=== PATIENT | female | born 1980 | race Two or more races ===

== ENCOUNTER 2019-05-07 12:41 | Emergency (ER) | payer MEDICAID ==
[~2019-05-07] VITALS: Ht 152.4 cm; Wt 90.7 kg
[2019-05-07 12:50] VITALS: BP 113/67
[2019-05-07] MEDS ORDERED: IBUPROFEN 800 MG TAB PO ONE (14:45)
== END 2019-05-07 15:05 | disposition home or self-care (01) ==
LOC: ER 12:50
DX: H66.91 Otitis media, unspecified, right ear (principal); J03.90 Acute tonsillitis, unspecified
CPT/HCPCS: 71046

== ENCOUNTER 2020-03-28 12:32 | Emergency (ER) | payer MEDICAID ==
[~2020-03-28] VITALS: Ht 152.4 cm; Wt 90.7 kg
[2020-03-28 12:47] VITALS: BP 125/90
== END 2020-03-28 17:21 | disposition home or self-care (01) ==
LOC: ER 12:32
DX: U07.1 COVID-19 (principal)
CPT/HCPCS: 36415; 71045; 87426

== ENCOUNTER 2020-11-06 11:46 | Emergency (ER) | payer MEDICAID ==
[~2020-11-06] VITALS: Ht 152.4 cm; Wt 90.7 kg
[2020-11-06 13:43] VITALS: BP 140/77
== END 2020-11-06 13:48 | disposition home or self-care (01) ==
LOC: ER 11:46
DX: J02.9 Acute pharyngitis, unspecified (principal); R19.7 Diarrhea, unspecified

== ENCOUNTER 2021-04-06 08:28 | Emergency (ER) | payer MEDICAID ==
[~2021-04-06] VITALS: Ht 144.8 cm; Wt 99.8 kg
[2021-04-06 08:42] VITALS: BP 135/84
== END 2021-04-06 09:14 | disposition home or self-care (01) ==
LOC: ER 08:28
DX: J20.9 Acute bronchitis, unspecified (principal)
CPT/HCPCS: 71046

== ENCOUNTER 2021-05-08 08:56 | Emergency (ER) | payer MEDICAID ==
[~2021-05-08] VITALS: Ht 162.6 cm; Wt 90.7 kg
[2021-05-08 09:58] VITALS: BP 117/65
[2021-05-08] MEDS ORDERED: IBUP200C3 PO (10:40)
== END 2021-05-08 10:46 | disposition home or self-care (01) ==
LOC: ER 08:56
DX: G44.209 Tension-type headache, unspecified, not intractable (principal); G43.909 Migraine, unspecified, not intractable, without status migrainosus
CPT/HCPCS: 70450